=== PATIENT | female | born 1945 | race Caucasian/White ===

== ENCOUNTER → 2021-01-10 | Outpatient (CLI) | payer MEDICARE, OTHER ==
[~2021-01-10] MED LIST: ACETAMINOPHEN325 M1 PO; ACID CONTROLLER20 MG PO; ALPRAZOLAM 0.0.25 M1 PO; ALPRAZOLAM ER0.5 MG; ANTIVERT25 MG PO; ASPIR 8181 MG PO; ATENOLOL 50MG T50 MG PO; ATIVAN0.5 MG PO; BACLOFEN 10MG T10 MG PO; BACTRIM DS TAB1 EAC1 PO; BACTRIM DS TAB1 EACH PO; BENTYL 20 MG TA20 M1 PO; BYSTOLIC 5 MG5 M1 PO; BYSTOLIC 5 MG5 MG PO; BYSTOLIC10 MG PO; CALCIUM 500 +1 EAC5 PO; CALCIUM500 MG PO; CARAFATE 1 GM TA1 G1 PO; CELEXA 20 MG TA20 M1 PO; CYCLOBENZAPRINE5 MG PO; DIGOXIN125 MCG PO; ELIQUIS5 MG PO; ESTRACE VAG CREAM TOP; ESTRACE1 TUBE VAG; ESTRADIOL 1 MG T1 M1 PO; FLECAINIDE ACET50 M2 PO; KEFLEX250 MG; KEFLEX500 M1 PO; LEVO-T100 MCG PO; LEVOTHROID100 MC1 PO; LEVOTHYROXIN0.088 MG PO; LEVOTHYROXIN0.112 M1 PO; LEXAPRO5 MG PO; LIDOCAINE VISC100 M1 MM; LOMOTIL TABLET1 EACH PO; MAXZIDE-25 MG1 EACH PO; MECLIZINE HCL25 M1 PO; NORCO 5-325 TA1 EACH PO; ONDANSETRON HCL4 M2 PO; ONDANSETRON ODT4 MG PO; PANTOPRAZOLE SO40 M1 PO; PEPCID20 MG PO; PHENERGAN 25 MG25 M1 PO; PRILOSEC OTC20 MG PO; PROLIA60 MG/1 ML; PROLIA60 MG/1 ML SUBQ; PROTONIX40 M4 PO; REGLAN 10 MG TA10 MG PO; SYNTHROID88 MC1 PO; ULTRAM50 MG PO; VITAMIN B-121000 MC3 PO; XANAX 0.25 MG0.25 MG PO; XANAX 0.5 MG0.5 M1 PO; XARELTO20 MG PO; ZOFRAN 4 MG ORAL4 MG PO; ZOFRAN ODT4 MG PO
== END ==
LOC: M.MRI 20:05
DX: G31.9 Degenerative disease of nervous system, unspecified (principal); R51.9 Headache, unspecified; R42 Dizziness and giddiness; R26.81 Unsteadiness on feet